=== PATIENT | female | born 1955 | race Caucasian/White ===

== ENCOUNTER 2020-12-20 06:38 | Day surgery (SDC) | payer OTHER | END 2020-12-20 10:50 | disposition home or self-care (01) | LOC: AMB-ENDOS 06:38 | PROVIDERS: ATTEND Colon & Rectal Surgery | DX: K31.89 Other diseases of stomach and duodenum (principal); K29.40 Chronic atrophic gastritis without bleeding; K22.70 Barrett's esophagus without dysplasia; K44.9 Diaphragmatic hernia without obstruction or gangrene; Z20.822 Contact with and (suspected) exposure to COVID-19 ==